=== PATIENT | female | born 1965 | race Hispanic/Latino ===

== ENCOUNTER 2020-04-19 22:22 | Inpatient (IN) | payer BC ==
[~2020-04-19] VITALS: Ht 152.4 cm; Wt 80.3 kg
[2020-04-19] MEDS ORDERED: ACETAMINOPHEN EXTRA STRENGTH 500 MG TABLET ONE (23:04)
[2020-04-19 23:11] LABS: BASOPHILS % (AUTO) 0.5 % (0.0-5.0); EOSINOPHILS % (AUTO) 0.3 % (0.0-8.0); HEMATOCRIT 37.6 % (36-48); LYMPHOCYTES % (AUTO) 20.2 % (21.0-51.0); MEAN CORPUSCULAR HEMOGLOBIN 30.6 pg (27.0-33.0); MEAN CORPUSCULAR HGB CONC 33.8 g/dL (32.0-36.0); MEAN CORPUSCULAR VOLUME 90.6 fL (79-99); MONOCYTES % (AUTO) 6.3 % (3.0-13.0); NEUTROPHILS % (AUTO) 72.4 % (40.0-77.0); PLATELET COUNT (AUTO) 189 K/uL (130-400); RED BLOOD CELL COUNT(AUTO) 4.15 MIL/uL (4.00-5.50); RED CELL DISTRIBUTION WIDTH 11.8 % (11.0-15.5); WHITE BLOOD COUNT (AUTO) 3.8 K/uL (4.8-10.8)
[2020-04-19 23:22] LABS: CREATININE 0.7 mg/dL (0.5-1.5); POTASSIUM 3.3 mmol/L (3.5-5.1)
[2020-04-19] MEDS ORDERED: DEXAMETHASONE SOD PHOSPHATE 10MG/ML 1ML VIAL ONE (23:26)
[2020-04-19] MEDS ORDERED: CEFTRIAXONE SODIUM 1 GM ONE (23:26)
[2020-04-19 23:27] LABS: ALBUMIN 3.5 g/dL (3.5-5.0); BILIRUBIN,TOTAL 0.4 mg/dL (0.2-1.0); CRP QUANTITATIVE 126.6 mg/L (0.00-9.0); TOTAL PROTEIN, SERUM 7.8 g/dL (6.0-8.3)
[2020-04-19] MEDS ORDERED: KETOROLAC TROMETHAMINE 30MG/ML ONE (23:27)
[2020-04-19] MEDS ORDERED: SODIUM CHLORIDE 0.9% 50 ML IV ONE (23:27)
[2020-04-19] MEDS ORDERED: AZITHROMYCIN 250 MG TABLET PO ONE (23:27)
[2020-04-19 23:33] LABS: ABG BASE EXCESS 0.1 mmol/L (-2.0-3.0); ABG HCO3 23.9 mmol/L (21.0-28.0); ABG OXYGEN SATURATION 93.2 % (95.0-99.0); ABG PCO2 36 mmHg (32-45)
[2020-04-19 23:38] LABS: B-TYPE NATRIURETIC PEPTIDE 8 pg/mL (0-100)
[2020-04-20] MEDS ORDERED: MAG HYDROX/AL HYDROX/SIMETH ES 30 ML SUSP UDCUP PO PRN (01:00)
[2020-04-20] MEDS ORDERED: LACTATED RINGERS 1000ML 1,000 ML IV SCH (01:00)
[2020-04-20] MEDS ORDERED: LACTULOSE 20 GM/30 ML UDCUP PO PRN (01:00)
[2020-04-20] MEDS: CEFTRIAXONE SODIUM 1 GM IV SCH (01:00)
[2020-04-20] MEDS ORDERED: ALBUTEROL SULFATE 0.083% 2.5 MG/3 ML INH IH PRN (01:00)
[2020-04-20] MEDS ORDERED: ONDANSETRON HCL 4 MG/2 ML VIAL IV PRN (01:00)
[2020-04-20] MEDS ORDERED: DiphenhydrAMINE HCL 50 MG/ML VIAL IV PRN (01:00)
[2020-04-20] MEDS ORDERED: ACETAMINOPHEN 325 MG TAB PO PRN ×2 (01:00)
[2020-04-20] MEDS ORDERED: NITROGLYCERIN 0.4 MG SL TAB SL PRN (01:00)
[2020-04-20] MEDS ORDERED: DIPHENHYDRAMINE HCL 25 MG CAPSULE PO PRN (01:00)
[2020-04-20] MEDS ORDERED: ERGOCALCIFEROL (VITAMIN D2) 50,000 UNIT CAPSULE PO SCH (01:00)
[2020-04-20] MEDS ORDERED: POTASSIUM CHLORIDE 20MEQ/100ML 100 ML IV PRN ×2 (01:15)
[2020-04-20] MEDS ORDERED: POTASSIUM CHLORIDE 10% ELIXIR 20 MEQ/15 ML UDCUP PO PRN (01:15)
[2020-04-20] MEDS ORDERED: POTASSIUM CHLORIDE 20 MEQ ERTAB PO PRN (01:15)
[2020-04-20] MEDS ORDERED: IOHEXOL 350 MG/ML 100ML INFUS..BTL IV ONE (02:25)
[2020-04-20] MEDS ORDERED: POTASSIUM CHLORIDE 20 MEQ ERTAB PO ONE (02:59)
[2020-04-20 03:31] LABS: APPEARANCE,URINE Cloudy (CLEAR); BILIRUBIN,URINE Negative (NEGATIVE); COLOR,URINE Yellow (YELLOW); GLUCOSE, URINE (UA) Negative (NEGATIVE); KETONES,URINE 40 mg/dL (NEGATIVE); LEUKOCYTE ESTERASE ,URINE Trace (NEGATIVE); NITRATE,URINE Negative (NEGATIVE); OCCULT BLOOD,URINE Negative (NEGATIVE); PROTEIN,URINE Negative (NEGATIVE); UROBILINOGEN,URINE 0.2 mg/dL (0.2-1.0)
[2020-04-20 03:40] LABS: BACTERIA,URINE Rare /HPF (None Seen); RBC,URINE None Seen /HPF (0-1); SQUAMOUS EPITHELIAL CELL,UR Moderate /HPF (0-2)
[2020-04-20 04:27] LABS: HEMATOCRIT 35.5 % (36-48); LYMPHOCYTES % (AUTO) 12.5 % (21.0-51.0); MEAN CORPUSCULAR HEMOGLOBIN 30.3 pg (27.0-33.0); MEAN CORPUSCULAR HGB CONC 33.5 g/dL (32.0-36.0); MEAN CORPUSCULAR VOLUME 90.3 fL (79-99); MONOCYTES % (AUTO) 2.6 % (3.0-13.0); NEUTROPHILS % (AUTO) 84.6 % (40.0-77.0); PLATELET COUNT (AUTO) 173 K/uL (130-400); RED BLOOD CELL COUNT(AUTO) 3.93 MIL/uL (4.00-5.50); RED CELL DISTRIBUTION WIDTH 11.7 % (11.0-15.5); WHITE BLOOD COUNT (AUTO) 3.5 K/uL (4.8-10.8)
[2020-04-20 04:47] LABS: ALBUMIN 3.2 g/dL (3.5-5.0); BILIRUBIN,TOTAL 0.3 mg/dL (0.2-1.0); CREATININE 0.7 mg/dL (0.5-1.5); CRP QUANTITATIVE 133.9 mg/L (0.00-9.0); TOTAL PROTEIN, SERUM 7.4 g/dL (6.0-8.3)
[2020-04-20] MEDS ORDERED: ASCORBIC ACID 500 MG TAB ONE ×3 (08:16→21:52)
[2020-04-20] MEDS ORDERED: DEXAMETHASONE SOD PHOSPHATE 10MG/ML 1ML VIAL ONE (08:16)
[2020-04-20] MEDS ORDERED: DOXYCYCLINE HYCLATE 100 MG TABLET PO ONE ×2 (08:16→21:52)
[2020-04-20] MEDS ORDERED: ENOXAPARIN SODIUM 40 MG/0.4 ML SYRINGE SQ ONE (08:17)
[2020-04-20] MEDS ORDERED: ZINC SULFATE 220 CAPSULE ONE (08:17)
[2020-04-20] MEDS ORDERED: FAMOTIDINE 20MG TAB 20 MG TAB ONE ×2 (08:17→21:53)
[2020-04-20] MEDS: FAMOTIDINE 20MG TAB 20 MG TAB PO SCH ×2 (09:00→21:00)
[2020-04-20] MEDS: ASCORBIC ACID 500 MG TAB PO SCH ×3 (09:00→21:00)
[2020-04-20] MEDS: DEXAMETHASONE SOD PHOSPHATE 4 MG/ML 1ML VIAL IV SCH (09:00)
[2020-04-20] MEDS: DOXYCYCLINE HYCLATE 100 MG TABLET PO SCH ×2 (09:00→21:00)
[2020-04-20] MEDS: ZINC SULFATE 220 CAPSULE PO SCH (09:00)
[2020-04-20] MEDS: ENOXAPARIN SODIUM 40 MG/0.4 ML SYRINGE SQ SCH (09:00)
[2020-04-20] MEDS ORDERED: [UNRECOGNIZED DRUG - REMARK] MISC SCH (10:45)
[2020-04-21] VITALS: BP 115/70
[2020-04-21] MEDS: CEFTRIAXONE SODIUM 1 GM IV SCH (01:14)
[2020-04-21 04:00] VITALS: BP 118/64
[2020-04-21] MEDS: GUAIFENESIN-DM 200/20 MG 10 ML PO PRN (06:19)
[2020-04-21 06:25] LABS: ALBUMIN 3.1 g/dL (3.5-5.0); BILIRUBIN,TOTAL 0.2 mg/dL (0.2-1.0); CREATININE 0.7 mg/dL (0.5-1.5); CRP QUANTITATIVE 77.7 mg/L (0.00-9.0); POTASSIUM 3.6 mmol/L (3.5-5.1); TOTAL PROTEIN, SERUM 7.2 g/dL (6.0-8.3)
[2020-04-21] MEDS: ZINC SULFATE 220 CAPSULE PO SCH (08:11)
[2020-04-21] MEDS: ENOXAPARIN SODIUM 40 MG/0.4 ML SYRINGE SQ SCH (08:11)
[2020-04-21] MEDS: FAMOTIDINE 20MG TAB 20 MG TAB PO SCH ×2 (08:12→19:28)
[2020-04-21] MEDS: DOXYCYCLINE HYCLATE 100 MG TABLET PO SCH (08:12)
[2020-04-21] MEDS: DEXAMETHASONE SOD PHOSPHATE 4 MG/ML 1ML VIAL IV SCH (08:12)
[2020-04-21] MEDS: ASCORBIC ACID 500 MG TAB PO SCH ×3 (08:16→19:27)
[2020-04-21 08:35] VITALS: BP 120/68
[2020-04-21] MEDS: BENZONATATE 100 MG CAPSULE PO PRN ×2 (09:20→18:28)
[2020-04-21 12:38] VITALS: BP 121/73
[2020-04-21] MEDS ORDERED: PHARMACY COMMUNICATION MISC SCH ×2 (15:00→21:15)
[2020-04-21 18:43] VITALS: BP 118/75
[2020-04-21 20:00] VITALS: BP_SYST 110; BP_SYST 98; BP_DIAS 57; BP_DIAS 64
[2020-04-22] VITALS (7 sets, daily range): BP systolic 93–113; BP diastolic 50–69
[2020-04-22] MEDS: BENZONATATE 100 MG CAPSULE PO PRN ×3 (00:29→21:15)
[2020-04-22] MEDS: GUAIFENESIN-DM 200/20 MG 10 ML PO PRN (00:29)
[2020-04-22 05:43] LABS: BASOPHILS % (AUTO) 0.2 % (0.0-5.0); HEMATOCRIT 34.2 % (36-48); LYMPHOCYTES % (AUTO) 16.6 % (21.0-51.0); MEAN CORPUSCULAR HEMOGLOBIN 30.5 pg (27.0-33.0); MEAN CORPUSCULAR VOLUME 92.2 fL (79-99); MONOCYTES % (AUTO) 7.9 % (3.0-13.0); PLATELET COUNT (AUTO) 234 K/uL (130-400); RED BLOOD CELL COUNT(AUTO) 3.71 MIL/uL (4.00-5.50); RED CELL DISTRIBUTION WIDTH 11.8 % (11.0-15.5); WHITE BLOOD COUNT (AUTO) 6.1 K/uL (4.8-10.8)
[2020-04-22 06:31] LABS: ALBUMIN 2.9 g/dL (3.5-5.0); BILIRUBIN,TOTAL 0.3 mg/dL (0.2-1.0); CREATININE 0.7 mg/dL (0.5-1.5); CRP QUANTITATIVE 119.7 mg/L (0.00-9.0); MAGNESIUM 1.6 mg/dL (1.80-2.40); POTASSIUM 3.7 mmol/L (3.5-5.1); TOTAL PROTEIN, SERUM 7.3 g/dL (6.0-8.3)
[2020-04-22] MEDS: DEXAMETHASONE SOD PHOSPHATE 4 MG/ML 1ML VIAL IV SCH (08:14)
[2020-04-22] MEDS: ENOXAPARIN SODIUM 40 MG/0.4 ML SYRINGE SQ SCH (08:14)
[2020-04-22] MEDS: FAMOTIDINE 20MG TAB 20 MG TAB PO SCH ×2 (08:14→21:15)
[2020-04-22] MEDS: ZINC SULFATE 220 CAPSULE PO SCH (08:14)
[2020-04-22] MEDS: ASCORBIC ACID 500 MG TAB PO SCH ×3 (08:18→21:15)
[2020-04-22] MEDS ORDERED: MAGNESIUM 2GM PREMIX 50ML 50 ML IV PRN (09:45)
[2020-04-22] MEDS ORDERED: PHARMACY COMMUNICATION MISC STA (12:11)
[2020-04-22] MEDS ORDERED: COMPOUND IV REFRIGERATED 1 EACH IVSOLN MISC PRN (14:00)
[2020-04-22] MEDS ORDERED: REMDESIVIR (EUA) 520 200 MG in SODIUM CHLORIDE 0.9% 250 ML IV ONE (14:00)
[2020-04-23 03:55] VITALS: BP 103/67
[2020-04-23 05:11] LABS: HEMATOCRIT 34.5 % (36-48); MEAN CORPUSCULAR HEMOGLOBIN 30.1 pg (27.0-33.0); MEAN CORPUSCULAR HGB CONC 32.8 g/dL (32.0-36.0); PLATELET COUNT (AUTO) 245 K/uL (130-400); RED BLOOD CELL COUNT(AUTO) 3.75 MIL/uL (4.00-5.50); RED CELL DISTRIBUTION WIDTH 11.7 % (11.0-15.5); WHITE BLOOD COUNT (AUTO) 5.5 K/uL (4.8-10.8)
[2020-04-23 05:40] LABS: BAND NEUTROPHILS % (MANUAL) 8 % (0-2); LYMPHOCYTES % (MANUAL) 8 % (22-44); MAN.DIFF COMMENT-IMPRESSION MANUAL DIFFERENTIAL; MONOCYTES % (MANUAL) 11 % (2-9); PLATELET MORPHOLOGY COMMENT ADEQUATE; REACTIVE LYMPHOCYTES 2 % (0-0); SEGMENTED NEUTROPHILS % 71 % (40-70)
[2020-04-23 05:46] LABS: ALBUMIN 2.8 g/dL (3.5-5.0); BILIRUBIN,TOTAL 0.3 mg/dL (0.2-1.0); CREATININE 0.7 mg/dL (0.5-1.5); POTASSIUM 3.5 mmol/L (3.5-5.1); TOTAL PROTEIN, SERUM 7.1 g/dL (6.0-8.3)
[2020-04-23] MEDS ORDERED: REMDESIVIR LABS MISC SCH (06:00)
[2020-04-23 08:00] VITALS: BP 125/85
[2020-04-23] MEDS: ZINC SULFATE 220 CAPSULE PO SCH (08:04)
[2020-04-23] MEDS: FAMOTIDINE 20MG TAB 20 MG TAB PO SCH ×2 (08:04→20:43)
[2020-04-23] MEDS: ASCORBIC ACID 500 MG TAB PO SCH ×3 (08:04→20:43)
[2020-04-23] MEDS: DEXAMETHASONE SOD PHOSPHATE 4 MG/ML 1ML VIAL IV SCH (08:04)
[2020-04-23] MEDS: ENOXAPARIN SODIUM 40 MG/0.4 ML SYRINGE SQ SCH (08:04)
[2020-04-23 12:00] VITALS: BP 104/68
[2020-04-23] MEDS: REMDESIVIR (EUA) 520 100 MG in SODIUM CHLORIDE 0.9% 250 ML IV SCH (15:09)
[2020-04-23 16:00] VITALS: BP 91/56
[2020-04-23 19:55] VITALS: BP 134/83
[2020-04-23] MEDS: BENZONATATE 100 MG CAPSULE PO PRN (20:49)
[2020-04-23 23:52] VITALS: BP 108/65
[2020-04-24 03:34] VITALS: BP 98/54
[2020-04-24 04:30] LABS: BASOPHILS % (AUTO) 0.1 % (0.0-5.0); HEMATOCRIT 36.1 % (36-48); LYMPHOCYTES % (AUTO) 11.4 % (21.0-51.0); MEAN CORPUSCULAR HEMOGLOBIN 29.8 pg (27.0-33.0); MEAN CORPUSCULAR HGB CONC 32.4 g/dL (32.0-36.0); MEAN CORPUSCULAR VOLUME 91.9 fL (79-99); MONOCYTES % (AUTO) 5.7 % (3.0-13.0); NEUTROPHILS % (AUTO) 82.2 % (40.0-77.0); PLATELET COUNT (AUTO) 311 K/uL (130-400); RED BLOOD CELL COUNT(AUTO) 3.93 MIL/uL (4.00-5.50); RED CELL DISTRIBUTION WIDTH 11.5 % (11.0-15.5); WHITE BLOOD COUNT (AUTO) 8.7 K/uL (4.8-10.8)
[2020-04-24 04:43] LABS: CREATININE 0.7 mg/dL (0.5-1.5); POTASSIUM 3.2 mmol/L (3.5-5.1)
[2020-04-24] MEDS ORDERED: LIDOCAINE HCL-MPF 1% 2ML VIAL ONE (07:09)
[2020-04-24] MEDS: DEXAMETHASONE SOD PHOSPHATE 4 MG/ML 1ML VIAL IV SCH ×2 (09:25→22:23)
[2020-04-24] MEDS: ENOXAPARIN SODIUM 40 MG/0.4 ML SYRINGE SQ SCH (09:26)
[2020-04-24] MEDS: FAMOTIDINE 20MG TAB 20 MG TAB PO SCH ×2 (09:26→22:24)
[2020-04-24] MEDS: ZINC SULFATE 220 CAPSULE PO SCH (09:26)
[2020-04-24] MEDS: ASCORBIC ACID 500 MG TAB PO SCH ×3 (09:26→22:24)
[2020-04-24 12:04] LABS: ALBUMIN 3.1 g/dL (3.5-5.0); BILIRUBIN,DIRECT 0.1 mg/dL (0.0-0.3); BILIRUBIN,TOTAL 0.3 mg/dL (0.2-1.0); TOTAL PROTEIN, SERUM 6.9 g/dL (6.0-8.3)
[2020-04-24 12:22] VITALS: BP 119/72
[2020-04-24] MEDS: REMDESIVIR (EUA) 520 100 MG in SODIUM CHLORIDE 0.9% 250 ML IV SCH (14:23)
[2020-04-24 16:44] VITALS: BP 109/67
[2020-04-24 19:00] VITALS: BP 113/59
[2020-04-25] VITALS: BP 113/56
[2020-04-25 03:33] LABS: ABG BASE EXCESS 2.7 mmol/L (-2.0-3.0); ABG HCO3 27.3 mmol/L (21.0-28.0); ABG OXYGEN SATURATION 87.8 % (95.0-99.0); ABG PCO2 42 mmHg (32-45)
[2020-04-25 04:00] VITALS: BP 106/54
[2020-04-25 06:49] LABS: HEMATOCRIT 33.1 % (36-48); LYMPHOCYTES % (AUTO) 8.4 % (21.0-51.0); MEAN CORPUSCULAR HEMOGLOBIN 30.1 pg (27.0-33.0); MEAN CORPUSCULAR HGB CONC 33.5 g/dL (32.0-36.0); MEAN CORPUSCULAR VOLUME 89.7 fL (79-99); MONOCYTES % (AUTO) 3.6 % (3.0-13.0); PLATELET COUNT (AUTO) 329 K/uL (130-400); RED BLOOD CELL COUNT(AUTO) 3.69 MIL/uL (4.00-5.50); RED CELL DISTRIBUTION WIDTH 11.4 % (11.0-15.5); WHITE BLOOD COUNT (AUTO) 6.1 K/uL (4.8-10.8)
[2020-04-25 07:03] LABS: ALBUMIN 2.8 g/dL (3.5-5.0); BILIRUBIN,TOTAL 0.4 mg/dL (0.2-1.0); CREATININE 0.6 mg/dL (0.5-1.5); MAGNESIUM 1.9 mg/dL (1.80-2.40); POTASSIUM 3.8 mmol/L (3.5-5.1)
[2020-04-25 08:00] VITALS: BP 107/68
[2020-04-25] MEDS: FAMOTIDINE 20MG TAB 20 MG TAB PO SCH ×2 (08:17→20:46)
[2020-04-25] MEDS: ZINC SULFATE 220 CAPSULE PO SCH (08:17)
[2020-04-25] MEDS: ENOXAPARIN SODIUM 40 MG/0.4 ML SYRINGE SQ SCH (08:17)
[2020-04-25] MEDS: ASCORBIC ACID 500 MG TAB PO SCH ×3 (08:18→20:46)
[2020-04-25] MEDS: DEXAMETHASONE SOD PHOSPHATE 4 MG/ML 1ML VIAL IV SCH ×2 (08:22→20:45)
[2020-04-25 12:18] VITALS: BP 106/54
[2020-04-25] MEDS: REMDESIVIR (EUA) 520 100 MG in SODIUM CHLORIDE 0.9% 250 ML IV SCH (14:54)
[2020-04-25] MEDS ORDERED: PHARMACY COMMUNICATION MISC SCH (15:00)
[2020-04-25 16:00] VITALS: BP 104/69
[2020-04-25 19:00] VITALS: BP 117/59
[2020-04-26] VITALS (7 sets, daily range): BP systolic 92–140; BP diastolic 51–85
[2020-04-26 05:48] LABS: HEMATOCRIT 35.8 % (36-48); LYMPHOCYTES % (AUTO) 6.6 % (21.0-51.0); MEAN CORPUSCULAR HEMOGLOBIN 30.2 pg (27.0-33.0); MEAN CORPUSCULAR HGB CONC 33.5 g/dL (32.0-36.0); MEAN CORPUSCULAR VOLUME 89.9 fL (79-99); MONOCYTES % (AUTO) 4.6 % (3.0-13.0); NEUTROPHILS % (AUTO) 87.6 % (40.0-77.0); PLATELET COUNT (AUTO) 428 K/uL (130-400); RED BLOOD CELL COUNT(AUTO) 3.98 MIL/uL (4.00-5.50); RED CELL DISTRIBUTION WIDTH 11.3 % (11.0-15.5); WHITE BLOOD COUNT (AUTO) 8.5 K/uL (4.8-10.8)
[2020-04-26 06:02] LABS: CREATININE 0.7 mg/dL (0.5-1.5); POTASSIUM 4.1 mmol/L (3.5-5.1)
[2020-04-26] MEDS: FAMOTIDINE 20MG TAB 20 MG TAB PO SCH ×2 (10:14→20:39)
[2020-04-26] MEDS: ZINC SULFATE 220 CAPSULE PO SCH (10:14)
[2020-04-26] MEDS: ENOXAPARIN SODIUM 40 MG/0.4 ML SYRINGE SQ SCH (10:15)
[2020-04-26] MEDS: DEXAMETHASONE SOD PHOSPHATE 4 MG/ML 1ML VIAL IV SCH ×2 (10:15→20:38)
[2020-04-26] MEDS: ASCORBIC ACID 500 MG TAB PO SCH ×3 (10:16→20:39)
[2020-04-26 14:06] LABS: ALBUMIN 2.9 g/dL (3.5-5.0); BILIRUBIN,DIRECT 0.1 mg/dL (0.0-0.3); BILIRUBIN,TOTAL 0.3 mg/dL (0.2-1.0); TOTAL PROTEIN, SERUM 7.2 g/dL (6.0-8.3)
[2020-04-26] MEDS: REMDESIVIR (EUA) 520 100 MG in SODIUM CHLORIDE 0.9% 250 ML IV SCH (15:34)
[2020-04-27] VITALS: BP 103/61
[2020-04-27 04:00] VITALS: BP 95/59
[2020-04-27 05:39] LABS: BASOPHILS % (AUTO) 0.2 % (0.0-5.0); HEMATOCRIT 33.5 % (36-48); LYMPHOCYTES % (AUTO) 7.8 % (21.0-51.0); MEAN CORPUSCULAR HEMOGLOBIN 30.2 pg (27.0-33.0); MEAN CORPUSCULAR HGB CONC 33.4 g/dL (32.0-36.0); MEAN CORPUSCULAR VOLUME 90.3 fL (79-99); MONOCYTES % (AUTO) 5.4 % (3.0-13.0); NEUTROPHILS % (AUTO) 84.7 % (40.0-77.0); PLATELET COUNT (AUTO) 410 K/uL (130-400); RED BLOOD CELL COUNT(AUTO) 3.71 MIL/uL (4.00-5.50); RED CELL DISTRIBUTION WIDTH 11.4 % (11.0-15.5); WHITE BLOOD COUNT (AUTO) 5.9 K/uL (4.8-10.8)
[2020-04-27 05:59] LABS: CREATININE 0.7 mg/dL (0.5-1.5); MAGNESIUM 2.1 mg/dL (1.80-2.40); POTASSIUM 4.3 mmol/L (3.5-5.1)
[2020-04-27] MEDS: FAMOTIDINE 20MG TAB 20 MG TAB PO SCH ×2 (08:27→21:04)
[2020-04-27] MEDS: ASCORBIC ACID 500 MG TAB PO SCH ×3 (08:27→21:05)
[2020-04-27] MEDS: DEXAMETHASONE SOD PHOSPHATE 4 MG/ML 1ML VIAL IV SCH ×2 (08:27→21:05)
[2020-04-27] MEDS: ZINC SULFATE 220 CAPSULE PO SCH (08:27)
[2020-04-27] MEDS: ENOXAPARIN SODIUM 40 MG/0.4 ML SYRINGE SQ SCH (08:30)
[2020-04-27 08:55] VITALS: BP 92/58
[2020-04-27 11:44] VITALS: BP 112/73
[2020-04-27 15:33] VITALS: BP 128/72
[2020-04-27 20:02] VITALS: BP 109/66
[2020-04-28 04:10] VITALS: BP 112/46
[2020-04-28 05:11] LABS: BASOPHILS % (AUTO) 0.2 % (0.0-5.0); LYMPHOCYTES % (AUTO) 6.9 % (21.0-51.0); MEAN CORPUSCULAR HEMOGLOBIN 29.9 pg (27.0-33.0); MEAN CORPUSCULAR HGB CONC 32.9 g/dL (32.0-36.0); MEAN CORPUSCULAR VOLUME 90.7 fL (79-99); MONOCYTES % (AUTO) 4.3 % (3.0-13.0); NEUTROPHILS % (AUTO) 87.3 % (40.0-77.0); PLATELET COUNT (AUTO) 453 K/uL (130-400); RED BLOOD CELL COUNT(AUTO) 3.75 MIL/uL (4.00-5.50); RED CELL DISTRIBUTION WIDTH 11.4 % (11.0-15.5); WHITE BLOOD COUNT (AUTO) 6.3 K/uL (4.8-10.8)
[2020-04-28 05:31] LABS: CREATININE 0.7 mg/dL (0.5-1.5); POTASSIUM 4.3 mmol/L (3.5-5.1)
[2020-04-28] MEDS: DEXAMETHASONE SOD PHOSPHATE 4 MG/ML 1ML VIAL IV SCH ×2 (08:14→20:41)
[2020-04-28] MEDS: ZINC SULFATE 220 CAPSULE PO SCH (08:14)
[2020-04-28] MEDS: ASCORBIC ACID 500 MG TAB PO SCH ×3 (08:14→20:41)
[2020-04-28] MEDS: FAMOTIDINE 20MG TAB 20 MG TAB PO SCH ×2 (08:14→20:41)
[2020-04-28] MEDS: ENOXAPARIN SODIUM 40 MG/0.4 ML SYRINGE SQ SCH (08:15)
[2020-04-28 08:26] VITALS: BP 104/62
[2020-04-28 13:36] VITALS: BP_SYST 118; BP_SYST 119; BP_DIAS 73; BP_DIAS 77
[2020-04-28 16:00] VITALS: BP 120/71
[2020-04-28 20:09] VITALS: BP 102/77
[2020-04-29] VITALS: BP 112/79
[2020-04-29 00:55] VITALS: BP 112/79
[2020-04-29 03:56] VITALS: BP 105/56
[2020-04-29 04:34] LABS: BASOPHILS % (AUTO) 0.1 % (0.0-5.0); HEMATOCRIT 32.7 % (36-48); LYMPHOCYTES % (AUTO) 6.5 % (21.0-51.0); MEAN CORPUSCULAR HEMOGLOBIN 30.6 pg (27.0-33.0); MEAN CORPUSCULAR HGB CONC 34.6 g/dL (32.0-36.0); MEAN CORPUSCULAR VOLUME 88.6 fL (79-99); MONOCYTES % (AUTO) 4.8 % (3.0-13.0); PLATELET COUNT (AUTO) 447 K/uL (130-400); RED BLOOD CELL COUNT(AUTO) 3.69 MIL/uL (4.00-5.50); RED CELL DISTRIBUTION WIDTH 11.4 % (11.0-15.5); WHITE BLOOD COUNT (AUTO) 7.4 K/uL (4.8-10.8)
[2020-04-29 04:43] LABS: CREATININE 0.6 mg/dL (0.5-1.5); POTASSIUM 4.2 mmol/L (3.5-5.1)
[2020-04-29 08:00] VITALS: BP 127/52
[2020-04-29] MEDS: ENOXAPARIN SODIUM 40 MG/0.4 ML SYRINGE SQ SCH (08:50)
[2020-04-29] MEDS: ASCORBIC ACID 500 MG TAB PO SCH ×2 (08:51→15:34)
[2020-04-29] MEDS: ZINC SULFATE 220 CAPSULE PO SCH (08:51)
[2020-04-29] MEDS: FAMOTIDINE 20MG TAB 20 MG TAB PO SCH (08:51)
[2020-04-29] MEDS: DEXAMETHASONE SOD PHOSPHATE 4 MG/ML 1ML VIAL IV SCH (08:51)
[2020-04-29 12:00] VITALS: BP 125/64
[2020-04-29 16:00] VITALS: BP 113/62
== END 2020-04-29 20:45 | DRG 177 ==
LOC: EDH 22:22 → EDHIP 04-20 00:59 → 4AH 04-20 21:43
PROVIDERS: ADMIT Family Medicine; ATTEND Family Medicine
PROC: XW13325 Transfusion of Convalescent Plasma (Nonautologous) into Peripheral Vein, Percutaneous Approach, New Technology Group 5 (ICD-10-PCS; 2020-04-20)
PROC: XW033E5 Introduction of Remdesivir Anti-infective into Peripheral Vein, Percutaneous Approach, New Technology Group 5 (ICD-10-PCS; 2020-04-22)
PROC: 5A0935A Assistance with Respiratory Ventilation, Less than 24 Consecutive Hours, High Flow/Velocity Cannula (ICD-10-PCS; principal; 2020-04-26)
DX: U07.1 COVID-19 (principal); J96.01 Acute respiratory failure with hypoxia; J12.82 Pneumonia due to coronavirus disease 2019; I24.8 Other forms of acute ischemic heart disease; E83.42 Hypomagnesemia; R00.1 Bradycardia, unspecified; D72.810 Lymphocytopenia; R79.89 Other specified abnormal findings of blood chemistry; E66.9 Obesity, unspecified; Z68.35 Body mass index [BMI] 35.0-35.9, adult; Z98.891 History of uterine scar from previous surgery
CPT/HCPCS: 36415; 36600; 71045; 71275; 80048; 80053; 80076; 81001; 82550; 82728; 82803; 83605; 83735; 83880; 84132; 84145; 84484; 85025; 85378; 86140; 86900; 86901; 86927; 87426; 93005; G0378; J0696; J1100; J1650; J1885; J3475; J3480; J3490; J7050; Q9967